=== PATIENT | male | born 1965 | race Caucasian/White ===

== ENCOUNTER 2019-04-21 11:38 | Emergency (ER) | payer BC ==
[2019-04-21] MEDS ORDERED: MORPHINE 4 MG/ML SYR ONE ×2 (12:03→14:13)
[2019-04-21] MEDS ORDERED: NA CHLORIDE 0.9% 1,000 ML ONE (12:03)
[2019-04-21] MEDS ORDERED: ONDANSETRON 4 MG/2 ML VIAL ONE (12:05)
[2019-04-21] MEDS ORDERED: KETOROLAC 30 MG/ML INJ ONE (12:34)
--- NOTE | 2019-04-21 12:39 | RAD REPORT ---
EXAM DESCRIPTION: CT - Stone Protocol - 04/21/2019 12:20 pm CLINICAL HISTORY: LLQ pain radiation to groin COMPARISON: No comparisons TECHNIQUE: Axial 5 mm thick images were obtained without oral or IV contrast. The [id number] span s the entirety of the system including uppermost abdomen and lung bases. All CT scans are performed using dose optimization technique as appropriate and may include automated exposure control or mA/KV adjustment according to patient size. FINDINGS: Mild hydronephrosis is present secondary to a 3 millimeter distal ureteral stone. This is approximately 3 cm from the UVJ. Mild edema seen along the fatty tissues adjacent to the left ureter. A 3 millimeter lower pole calcification present on the right. No right-sided hydronephrosis. No susp icious renal masses. Isodense masses and pyelonephritis are not excluded on a stone protocol CT scan. No urinary bladder suspicious finding. No significant adrenal finding. Imaged portions of the liver, spleen and pancreas show no suspicious findings on non-contrast imaging . Gallbladder has multiple small gallstones. No active gallbladder disease. No duct stone seen on CT imaging. No biliary tree dilatation. No suspicious bowel findings. No mass or bulky lymphadenopathy. Bilateral fat filled inguinal hernias are present. No free air, nba e fluid or inflammatory stranding. No significant bony abnormality. IMPRESSION: Mild left-sided hydronephrosis secondary to a 3 mm distal ureteral stone. This is approx imately 3 cm from the bladder. Isodense masses and pyelonephritis are not excluded on stone protocol technique.
[2019-04-21 12:58] LABS: Basophils % 0.6 % (0-1.3); Hematocrit 44.6 % (39.6-49.0); MPV 8.3 fL (7.6-11.3); RBC Red Blood Cell Count 4.99 M/uL (4.33-5.43)
[2019-04-21 13:08] LABS: Albumin 3.8 g/dL (3.4-5.0); Bilirubin Direct 0.2 mg/dL (0-0.2); Bilirubin Total 0.4 mg/dL (0.2-1.0); Protein, Total 7.4 g/dL (6.4-8.2)
[2019-04-21 13:39] LABS: Urine Bacteria <20 /HPF (NONE SEEN); Urine Culture Reflex Order NOT NEEDED; Urine Mucus HEAVY /HPF (NONE SEEN); Urine RBC >50 /HPF (NONE SEEN)
--- NOTE | 2019-04-21 14:43 | ER ---
Nurse's Notes [facility] Name: Dimas Dupree Age: 53 yrs Sex: Male : 1965 Arrival Date: 04/21/2019 Time: 11:41 Bed 13 Private MD: Diagnosis: Calculus of ureter Presentation: 04/21 11:42 Presenting complaint: EMS states: LLQ pain that radiates to groin, began at approx 1000 ph this morning, also c/o N/V. Transition of care: patient was not received from another setting of care. Onset of symptoms was April 21, 2019. Risk Assessment: Do you want to hurt yourself or someone else? Patient reports no desire to harm self or others. Initial Sepsis Screen: Does the patient meet any 2 criteria? No. Patient's initial sepsis screen is negative. Does the patient have a suspected source of infection? Yes: Dysuria/Frequency/Urgency/UTI. Care prior to arrival: Medication(s) given: Phenergan, 12.5 mg, IV initiated. 20 GA, in the left antecubital area. 11:42 Method Of Arrival: EMS: [facility] ph 11:42 Acuity: NANCIE 3 ph Triage Assessment: 19:26 General: Appears. ph Historical: - Allergies: 11:48 No Known Allergies; ph - PMHx: 11:48 Hypertension; ph - PSHx: 11:48 None; ph - Immunization history:: Adult Immunizations unknown. - Coronavirus screen:: The patient has NOT traveled to [place] in the past 14 days. The patient has NOT had contact with known/suspected case of Coronavirus?. - Social history:: Smoking status: Patient denies any tobacco usage or history of. - Ebola Screening: : No symptoms or risks identified at this time. Screenin:00 Abuse screen: Denies threats or abuse. Denies injuries from another. Nutritional ph screening: No deficits noted. Tuberculosis screening: No symptoms or risk factors identified. Fall Risk None identified. Assessment: 12:30 General: Appears in no apparent distress. uncomfortable, well groomed, Behavior is ph calm, cooperative, appropriate for age, Denies fever. Pain: Complains of pain in anterior aspect of right lateral abdomen and left lower quadrant Pain radiates to pelvis. Neuro: Level of Consciousness is awake, alert, obeys commands, Oriented to person, place, time, situation. Cardiovascular: Capillary refill < 3 seconds in bilateral fingers Patient's skin is warm and dry. Respiratory: Airway is patent Respiratory effort is even, unlabored, Respiratory pattern is regular, symmetrical. GI: Bowel sounds present X 4 quads. Abd is soft X 4 quads Reports lower abdominal pain, nausea, vomiting. : Reports pain in left flank(s), lower quadrant(s) scrotum. Derm: Skin is intact, is healthy with good turgor, Skin is pink, warm \T\ dry. Musculoskeletal: Circulation, motion, and sensation intact. Range of motion: intact in all extremities. Vital Signs: 11:45 BP 147 / 104; Pulse 75; Resp 22; Temp 97.8; Pulse Ox 100% on R/A; Weight 113.4 kg; ph Height 6 ft. 2 in. (187.96 cm); Pain 8/10; 13:00 BP 137 / 94; Pulse 76; Resp 18; Temp 98.0; Pulse Ox 99% on R/A; ph 14:00 BP 141 / 87; Pulse 78; Resp 16; Pulse Ox 98% on R/A; ph 15:00 BP 138 / 87; Pulse 75; Resp 16; Temp 97.9; Pulse Ox 99% on R/A; Pain 3/10; ph 11:45 Body Mass Index 32.10 (113.40 kg, 187.96 cm) ph ED Course: 11:41 Patient arrived in ED. ph 11:45 Triage completed. ph 11:48 Arm band placed on Patient placed in an exam room, on a stretcher, on pulse oximetry. ph 11:51 Rosalio Blue NP is PHCP. pm1 11:51 Dallas Spear MD is Attending Physician. pm1 12:18 Alice Wilkinson RN is Primary Nurse. ph 12:20 CT completed. Patient tolerated procedure well. Patient moved back from CT. bq 12:30 Patient has correct armband on for positive identification. Bed in low position. Call ph light in reach. Side rails up X 1. Pulse ox on. NIBP on. Door closed. Noise minimized. 12:30 No provider procedures requiring assistance completed. Maintain EMS IV. Dressing ph intact. Good blood return noted. Site clean \T\ dry. Gauge \T\ site: 20 LAC. 15:15 IV discontinued, intact, bleeding controlled, No redness/swelling at site. Pressure ph dressing applied. Administered Medications: 12:20 Drug: morphine 4 mg Route: IVP; Site: right forearm; ph 13:00 Follow up: Response: No adverse reaction; Pain is decreased; RASS: Alert and Calm (0) ph 12:40 Drug: TORadol 30 mg Route: IVP; Site: left antecubital; ph 13:30 Follow up: Response: No adverse reaction; Pain is decreased ph 12:42 Drug: NS 0.9% 1000 ml Route: IV; Rate: 1000 ml; Site: left antecubital; ph 14:00 Follow up: Response: No adverse reaction; IV Status: Completed infusion; IV Intake: ph 1000ml 15:17 Drug: Flomax 0.4 mg Route: PO; ph 15:20 Follow up: Response: No adverse reaction; Medication administered at discharge. ph Intake: 14:00 IV: 1000ml; Total: 1000ml. ph Outcome: 14:42 Discharge ordered by . pm1 15:17 Patient left the ED. ph 15:17 Discharged to home ambulatory, with significant other. ph 15:17 Condition: improved 15:17 Discharge instructions given to patient, Instructed on discharge instructions, follow up and referral plans. medication usage, Demonstrated understanding of instructions, follow-up care, medications, Prescriptions given X 3. Signatures: Ely Serna Patricia, RN RN Rosalio Sarmiento, RICKYE CAR SALESPERSON pm1
--- NOTE | 2019-04-21 14:44 | EDPHYS ---
Physician Documentation [facility] Name: Dimas Dupree Age: 53 yrs Sex: Male : 1965 Arrival Date: 04/21/2019 Time: 11:41 Bed 13 Private MD: ED Physician Dallas Spear HPI: 04/21 11:59 This 53 yrs old Male presents to ER via EMS with complaints of Abdominal Pain.pm1 11:59 The patient presents with abdominal pain in the left lower quadrant. Onset: The pm1 symptoms/episode began/occurred this morning. The symptoms radiate to groin. Associated signs and symptoms: Pertinent negatives: nausea, vomiting, and diarrhea, chest pain, fever, shortness of breath. The symptoms are described as waxing/waning. Modifying factors: The symptoms are alleviated by nothing, the symptoms are aggravated by nothing. Severity of pain: in the emergency department the pain is actually worse. The patient has not experienced similar symptoms in the past. It is unknown whether or not the patient has recently seen a physician. Historical: - Allergies: 11:48 No Known Allergies; ph - PMHx: 11:48 Hypertension; ph - PSHx: 11:48 None; ph - Immunization history:: Adult Immunizations unknown. - Coronavirus screen:: The patient has NOT traveled to [place] in the past 14 days. The patient has NOT had contact with known/suspected case of Coronavirus?. - Social history:: Smoking status: Patient denies any tobacco usage or history of. - Ebola Screening: : No symptoms or risks identified at this time. ROS: 11:59 Constitutional: Negative for fever, chills, and weight loss, Cardiovascular: Negative pm1 for chest pain, palpitations, and edema, Respiratory: Negative for shortness of breath, cough, wheezing, and pleuritic chest pain. 11:59 Back: Negative for injury and pain, : Negative for injury, bleeding, discharge, and swelling, MS/Extremity: Negative for injury and deformity, Skin: Negative for injury, rash, and discoloration, Neuro: Negative for headache, weakness, numbness, tingling, and seizure. 11:59 Abdomen/GI: Positive for abdominal pain, of the left lower quadrant, Negative for nausea, vomiting, and diarrhea. Exam: 11:59 Constitutional: This is a well developed, well nourished patient who is awake, alert, pm1 and in no acute distress. Head/Face: Normocephalic, atraumatic. Chest/axilla: Normal chest wall appearance and motion. Nontender with no deformity. No lesions are appreciated. Cardiovascular: Regular rate and rhythm with a normal S1 and S2. No gallops, murmurs, or rubs. Normal PMI, no JVD. No pulse deficits. Respiratory: Lungs have equal breath sounds bilaterally, clear to auscultation and percussion. No rales, rhonchi or wheezes noted. No increased work of breathing, no retractions or nasal flaring. Abdomen/GI: Soft, non-tender, with normal bowel sounds. No distension or tympany. No guarding or rebound. No evidence of tenderness throughout. Back: No spinal tenderness. No costovertebral tenderness. Full range of motion. Skin: Warm, dry with normal turgor. Normal color with no rashes, no lesions, and no evidence of cellulitis. MS/ Extremity: Pulses equal, no cyanosis. Neurovascular intact. Full, normal range of motion. 11:59 Neuro: Orientation: is normal, Motor: is normal, moves all fours. Vital Signs: 11:45 BP 147 / 104; Pulse 75; Resp 22; Temp 97.8; Pulse Ox 100% on R/A; Weight 113.4 kg; ph Height 6 ft. 2 in. (187.96 cm); Pain 8/10; 13:00 BP 137 / 94; Pulse 76; Resp 18; Temp 98.0; Pulse Ox 99% on R/A; ph 14:00 BP 141 / 87; Pulse 78; Resp 16; Pulse Ox 98% on R/A; ph 15:00 BP 138 / 87; Pulse 75; Resp 16; Temp 97.9; Pulse Ox 99% on R/A; Pain 3/10; ph 11:45 Body Mass Index 32.10 (113.40 kg, 187.96 cm) ph MDM: 11:51 Patient medically screened. pm1 14:41 Data reviewed: vital signs. Data interpreted: Pulse oximetry: on room air is 100 %. pm1 Interpretation: normal. Counseling: I had a detailed discussion with the patient and/or guardian regarding: the historical points, exam findings, and any diagnostic results supporting the discharge/admit diagnosis, lab results, radiology results, the need for outpatient follow up, for definitive care, a urologist, to return to the emergency department if symptoms worsen or persist or if there are any questions or concerns that arise at home. 04/21 11:56 Order name: Basic Metabolic Panel pm04/21 11:56 Order name: CBC with Diff pm04/21 11:56 Order name: Creatinine for Radiology pm04/21 11:56 Order name: Hepatic Function pm04/21 11:56 Order name: Lipase pm04/21 11:56 Order name: Urine Microscopic Only pm04/21 11:56 Order name: CT Stone Protocol pm04/21 13:01 Order name: Creatinine (Radiology Only); Complete Time: 13:14 EDMS 04/21 13:05 Order name: Urine Dipstick--Ancillary (enter results) ms 04/21 13:07 Order name: CBC with Automated Diff; Complete Time: 13:14 EDMS 04/21 13:08 Order name: Basic Metabolic Panel; Complete Time: 13:14 EDMS 04/21 13:08 Order name: Liver (Hepatic) Function; Complete Time: 13:14 EDMS 04/21 13:08 Order name: Lipase; Complete Time: 13:14 EDMS 04/21 13:41 Order name: Urine Microscopic Only; Complete Time: 14:43 EDMS 04/21 11:56 Order name: IV Saline Lock; Complete Time: 12:43 pm04/21 11:56 Order name: Labs collected and sent; Complete Time: 12:43 pm04/21 11:56 Order name: Urine Dipstick-Ancillary (obtain specimen); Complete Time: 12:43 pm04/21 12:42 Order name: CT; Complete Time: 13:14 EDMS Administered Medications: 12:20 Drug: morphine 4 mg Route: IVP; Site: right forearm; ph 13:00 Follow up: Response: No adverse reaction; Pain is decreased; RASS: Alert and Calm (0) ph 12:40 Drug: TORadol 30 mg Route: IVP; Site: left antecubital; ph 13:30 Follow up: Response: No adverse reaction; Pain is decreased ph 12:42 Drug: NS 0.9% 1000 ml Route: IV; Rate: 1000 ml; Site: left antecubital; ph 14:00 Follow up: Response: No adverse reaction; IV Status: Completed infusion; IV Intake: ph 1000ml 15:17 Drug: Flomax 0.4 mg Route: PO; ph 15:20 Follow up: Response: No adverse reaction; Medication administered at discharge. ph Disposition: 15:53 Co-signature as Attending Physician, Dallas Spear MD. rn Disposition: 04/21/19 14:42 Discharged to Home. Impression: Calculus of ureter. - Condition is Stable. - Discharge Instructions: Kidney Stones, Dietary Guidelines to Help Prevent Kidney Stones. - Prescriptions for Tylenol- Codeine #3 300-30 mg Oral Tablet - take 2 tablets by ORAL route every 6 hours As needed; 20 tablet. Zofran 4 mg Oral Tablet - take 1 tablet by ORAL route every 8 hours As needed; 20 tablet. Flomax 0.4 mg Oral Capsule, Sust. Release 24 hr - take 1 capsule by ORAL route once daily 1/2 hour following the same meal each day; 10 capsule. - Medication Reconciliation Form, Thank You Letter, Antibiotic Education, Prescription Opioid Use form. - Follow up: Emergency Department; When: As needed; Reason: Worsening of condition. - Problem is new. - Symptoms have improved. Signatures: Dispatcher [employer] EDDallas Reid MD MD rn Hall, Patricia, RN RN ph Marinas, Patrick, NP [employer] pm1 Corrections: (The following items were deleted from the chart) 15:17 14:42 04/21/2019 14:42 Discharged to Home. Impression: Calculus of ureter. Condition is ph Stable. Forms are Medication Reconciliation Form, Thank You Letter, Antibiotic Education, Prescription Opioid Use. Follow up: Emergency Department; When: As needed; Reason: Worsening of condition. Problem is new. Symptoms have improved. pm1
[2019-04-21] MEDS ORDERED: TAMSULOSIN 0.4 MG SR CAP ONE (14:59)
[2019-04-21 16:06] VITALS: BP 147/104; TEMP 97.8; O2SAT 100
[2019-04-21 20:36] LABS: Urine Blood 3+ (NEG); Urine Glucose NEGATIVE (NEG); Urine Protein 1+ (NEG); Urine Specific Gravity >1.030 (1.005-1.030); Urine pH 5.5 (5.0-7.0)
== END 2019-04-21 15:17 | disposition home or self-care (01) ==
LOC: ER 11:38
DX: N20.1 Calculus of ureter (principal); I10 Essential (primary) hypertension
CPT/HCPCS: 96361; 85025; 80048; 36415; 80076; 83690; 76377; 74176; 96375; 96374; 99284; J7030; J2405; 81003; 81015

== ENCOUNTER 2023-04-18 13:50 | Observation (INO) | payer BC ==
[2023-04-18] MEDS ORDERED: ONDANSETRON 4 MG/2 ML VIAL ONE (14:04)
[2023-04-18] MEDS ORDERED: MORPHINE 4 MG/ML SYR ONE ×2 (14:05→15:30)
[2023-04-18] MEDS ORDERED: NA CHLORIDE 0.9% 1,000 ML ONE ×2 (14:05→17:48)
[2023-04-18 14:22] LABS: Absolute Lymphocytes (CBC) 1.6 K/uL (0.7-4.9); Hematocrit 36.7 % (39.6-49.0); Lymphocytes % 13.8 % (15.3-44.8); MPV 7.5 fL (7.6-11.3); Platelets 376 thou/uL (152-406); RBC Red Blood Cell Count 4.37 M/uL (4.33-5.43)
[2023-04-18 14:35] LABS: Albumin 3.3 g/dL (3.4-5.0); Bilirubin Total 0.4 mg/dL (0.2-1.0); Potassium 3.8 mEq/L (3.5-5.1); Protein, Total 7.3 g/dL (6.4-8.2)
--- NOTE | 2023-04-18 15:05 | RAD REPORT ---
EXAM DESCRIPTION: US - Abdomen Exam Limited - 04/18/2023 2:44 pm CLINICAL HISTORY: ABD PAIN COMPARISON: Stone Protocol dated 04/21/2019; Abdomen Pelvis W Contrast dated 04/18/2023 TECHNIQUE: Sonographic grayscale and color flow images of the right upper abdominal quadrant were o btained. FINDINGS: The gallbladder demonstrates multiple layering small echogenic calculi near the neck. No p ericholecystic fluid or gallbladder wall thickening, however a positive sonographic Guerrero sign was d emonstrated. There is a small fold near the gallbladder fundus. The common bile duct is normal measur ing 3 mm. The liver demonstrates no findings of intrahepatic biliary dilatation. IMPRESSION: Cholelithiasis, with positive sonographic Guerrero sign, concerning for acute cholecystiti s.
[2023-04-18 15:53] LABS: Urine Bacteria None Seen /HPF (<20); Urine Bilirubin NEGATIVE (Negative); Urine Blood 3+ (OVER) (Negative); Urine Clarity Turbid (Clear); Urine Color Light-Yellow (Yellow); Urine Crystals Unidentified Few /HPF (None Seen); Urine Glucose NEGATIVE (Negative); Urine Mucus 1+ /HPF (None Seen); Urine Protein TRACE (Negative); Urine RBC >50 /HPF (None Seen); Urine Urobilinogen Normal (Normal); Urine pH 6.5 (5.0-7.0)
--- NOTE | 2023-04-18 15:54 | RAD REPORT ---
EXAM DESCRIPTION: CT - Abdomen Pelvis W Contrast - 04/18/2023 2:47 pm CLINICAL HISTORY: ABD PAIN COMPARISON: No comparisons TECHNIQUE: Thin cut axial CT imaging of the abdomen and pelvis was performed following intravenous a dministration of 100 mL Isovue 300. Multiplanar reformats were generated and reviewed. All CT scans are performed using dose optimization technique as appropriate and may include automated exposure control or mA/KV adjustment according to patient size. FINDINGS: No suspicious findings in the lung bases. The liver, spleen, adrenal glands, and pancreas show no suspicious findings. Gallbladder shows layeri ng mildly hyperdense material near the neck, may suggest small stones. Right moderate hydroureteronephrosis. 6 mm calculus at the mid to distal right ureter. No suspicious renal masses. No dilated bowel loops or bowel wall thickening. No free air, free fluid or inflammatory stranding. S mall left inguinal fat containing hernia. No suspicious mass or bulky lymphadenopathy. The urinary bl adder is without significant finding. No suspicious bony findings. IMPRESSION: Moderate right hydroureteronephrosis. Obstructing 6 mm mid to distal right ureteric calc ulus. Cholelithiasis. The findings were communicated to Eliseo Page on 04/18/2023 at 15:50 hours.
[2023-04-18 16:00] LABS: Specific Gravity > 1.030 (1.005-1.030)
[2023-04-18] MEDS ORDERED: PIPERACIL/TAZO 3.375 GM VIAL IV ONE (16:29)
[2023-04-18] MEDS ORDERED: HYDROMORPHONE HCL 1 MG/ML INJ ONE (16:29)
[2023-04-18] MEDS ORDERED: NA CHLORIDE 0.9% 100 ML ONE (16:29)
--- NOTE | 2023-04-18 16:56 | EDPHYS ---
Physician Documentation [facility] Name: Dimas Dupree Age: 57 yrs Sex: Male : 1965 Arrival Date: 04/18/2023 Time: 13:50 Bed 20 Private MD: ED Physician Dimas Romero HPI: 04/18 17:54 This 57 yrs old Male presents to ER via EMS with complaints of Abdominal pain. rt 17:54 Patient presents to the ED with a right upper quadrant pain. He has known rt cholelithiasis. Symptoms have worsened this morning. Has nausea without vomiting. Denies other acute complaints, symptoms are moderate in severity and radiates downward. No other aggravating or elevating factors.. Historical: - Allergies: 14:01 No Known Allergies; mb9 - Home Meds: 14:01 losartan 25 mg oral tablet [Active]; mb9 - PMHx: 14:01 Hypertension; mb9 - PSHx: 14:01 None; mb9 - Immunization history:: Adult Immunizations up to date. - Social history:: Smoking status: Patient denies any tobacco usage or history of. - Family history:: not pertinent. ROS: 17:54 Constitutional: Negative for fever, chills, and weight loss, Cardiovascular: Negative rt for chest pain, palpitations, and edema, Respiratory: Negative for shortness of breath, cough, wheezing, and pleuritic chest pain, MS/Extremity: Negative for injury and deformity, Skin: Negative for injury, rash, and discoloration, Neuro: Negative for headache, weakness, numbness, tingling, and seizure, Psych: Negative for depression, anxiety, suicide ideation, homicidal ideation, and hallucinations, 17:54 Abdomen/GI: Positive for abdominal pain, nausea, Exam: 17:54 Constitutional: This is a well developed, well nourished patient who is awake, alert, rt and in no acute distress. Head/Face: Normocephalic, atraumatic. Chest/axilla: Normal chest wall appearance and motion. Nontender with no deformity. No lesions are appreciated. Cardiovascular: Regular rate and rhythm with a normal S1 and S2. No gallops, murmurs, or rubs. Normal PMI, no JVD. No pulse deficits. Respiratory: Lungs have equal breath sounds bilaterally, clear to auscultation and percussion. No rales, rhonchi or wheezes noted. No increased work of breathing, no retractions or nasal flaring. Skin: Warm, dry with normal turgor. Normal color with no rashes, no lesions, and no evidence of cellulitis. MS/ Extremity: Pulses equal, no cyanosis. Neurovascular intact. Full, normal range of motion. Neuro: Awake and alert, GCS 15, oriented to person, place, time, and situation. Cranial nerves II-XII grossly intact. Motor strength 5/5 in all extremities. Sensory grossly intact. Cerebellar exam normal. Normal gait. Psych: Awake, alert, with orientation to person, place and time. Behavior, mood, and affect are within normal limits. 17:54 Abdomen/GI: Tenderness to the right upper quadrant with mild guarding, no rebound, distention, Vital Signs: 14:00 BP 171 / 99; Pulse 81; Resp 18; Temp 98.8; Pulse Ox 100% ; Weight 117.93 kg; Height 6 mb9 ft. 2 in. ; Pain 6/10; 15:12 BP 182 / 105; Pulse 88; Resp 18; Pulse Ox 100% on R/A; mb9 16:00 BP 170 / 92; Pulse 84; Resp 18; Pulse Ox 95% on R/A; mb9 14:00 Body Mass Index 33.38 (117.93 kg, 187.96 cm) mb9 14:00 Pain Scale: Adult mb9 MDM: 14:00 Patient medically screened. rt 17:54 Differential Diagnosis Cholelithiasis, bowel obstruction, ureteral stone. Data rt reviewed: vital signs, nurses notes, lab test result(s), EKG, radiologic studies. Consideration of Admission/Observation Patient was admitted/placed on observation. Management of patient was discussed with the following: Electrical Installation Inspector: Discussed with Dr. Awan general surgery, will operate tomorrow. I considered the following discharge prescriptions or medication management in the emergency department Medications were administered in the Emergency Department. See MAR. Independent interpretation of the following test(s) in the Emergency Department CT Scan: My interpretation is No bowel obstruction syndrome interpretation of CT scan images. Care significantly affected by the following chronic conditions: Hypertension. Counseling: I had a detailed discussion with the patient and/or guardian regarding the historical points, exam findings, and any diagnostic results supporting the discharge/admit diagnosis, lab results, radiology results, the need for further work-up and treatment in the hospital. Response to treatment: the patient's symptoms have mildly improved after treatment. 04/18 14:02 Order name: CBC with Diff; Complete Time: 15:57 rt 04/18 14:02 Order name: CMP; Complete Time: 15:57 rt 04/18 14:02 Order name: Lipase; Complete Time: 15:57 rt 04/18 14:02 Order name: Urinalysis w/ reflexes; Complete Time: 16:12 rt 04/18 17:18 Order name: Basic Metabolic Panel EDMO 04/18 17:18 Order name: Basic Metabolic Panel EDMO 04/18 17:18 Order name: CBC with Automated Diff EDMO 04/18 17:18 Order name: CBC with Automated Diff EDMO 04/18 17:18 Order name: Magnesium EDMO 04/18 17:18 Order name: Magnesium EDMO 04/18 17:18 Order name: Protime (+INR) EDMO 04/18 17:18 Order name: Protime (+INR) EDMO 04/18 14:02 Order name: CT Abd/Pelvis - IV Contrast Only; Complete Time: 15:57 rt 04/18 14:02 Order name: US Abdomen Limited; Complete Time: 15:57 rt 04/18 17:15 Order name: CONS Physician Consult EDMO 04/18 14:02 Order name: IV Saline Lock; Complete Time: 14:03 rt 04/18 14:02 Order name: Labs collected and sent; Complete Time: 14:13 rt Administered Medications: 14:07 Drug: NS 0.9% IV 1000 ml IV at 1 bolus Per protocol; 1000 mL bolus Route: IV; Rate: 1 mb9 bolus; Site: left antecubital; 18:30 Follow up: Response: No adverse reaction; IV Status: Completed infusion mb9 14:07 Drug: Ondansetron IVP 4 mg IVP once; over 2 minutes Route: IVP; Site: left antecubital; mb9 14:37 Follow up: Response: No adverse reaction mb9 14:10 Drug: morphine IVP or IV 4 mg IVP once over 4 mins Route: IVP; Infused Over: 4 mins; mb9 Site: left antecubital; 14:38 Follow up: Response: No adverse reaction mb9 15:33 Drug: morphine IVP or IV 4 mg IVP once over 4 mins Route: IVP; Infused Over: 4 mins; mb9 Site: left antecubital; 18:30 Follow up: Response: No adverse reaction mb9 16:39 Drug: HYDROmorphone IVP 1 mg IVP once Route: IVP; Site: left antecubital; mb9 18:30 Follow up: Response: No adverse reaction mb9 16:39 Drug: Piperacillin-Tazobactam IVPB 3.375 grams IVPB once over 60 mins; (mix in NS 100 mb9 mL) Route: IVPB; Infused Over: 60 mins; Site: left antecubital; 18:30 Follow up: Response: No adverse reaction; IV Status: Completed infusion mb9 Disposition Summary: 04/18/23 16:56 Hospitalization Ordered Notes: Hospitalization Status: Observation rt Provider: Thania Segovia rt Condition: Stable rt Problem: new rt Symptoms: have improved rt Bed/Room Type: Standard rt Location: Telemetry/MedSurg (observation)(04/18/23 20:10) as6 Room Assignment: 231(04/18/23 20:10) as6 Diagnosis - Acute cholecystitis rt - Ureteral calculus rt Forms: - Medication Reconciliation Form rt - SBAR form rt - Leadership Thank You Letter rt Signatures: Dispatcher [employer] EDClarita Negrete Ashby, RN RN as6 Ro Cook RN RN mb9 Dimas Romero MD MD rt Corrections: (The following items were deleted from the chart) 17:21 16:56 Telemetry/MedSurg (observation) rt bd 17:21 16:56 rt bd 20:10 17:21 [facility] ER HOLD bd as6 20:10 17:21 ERHOLD- bd as6
--- NOTE | 2023-04-18 16:56 | ER ---
Nurse's Notes [facility] Name: Dimas Dupree Age: 57 yrs Sex: Male : 1965 Arrival Date: 04/18/2023 Time: 13:50 Bed 20 Private MD: Diagnosis: Acute cholecystitis;Ureteral calculus Presentation: 04/18 14:00 Chief complaint: EMS states: "toned out for RUQ abdominal pain and N/V that got worse mb9 today. Pt states pain feels like when he had gallstones. 20 g left FA.". Coronavirus screen: Vaccine status: Patient reports receiving the 2nd dose of the covid vaccine. Ebola Screen: No symptoms or risks identified at this time. Initial Sepsis Screen: Does the patient meet any 2 criteria? No. Patient's initial sepsis screen is negative. Does the patient have a suspected source of infection? No. Patient's initial sepsis screen is negative. Risk Assessment: Do you want to hurt yourself or someone else? Patient reports no desire to harm self or others. Onset of symptoms was April 18, 2023. 14:00 Method Of Arrival: EMS: [facility] mb9 14:00 Acuity: NANCIE 3 mb9 Triage Assessment: 14:02 General: Appears uncomfortable, Behavior is cooperative. Pain: Complains of pain in mb9 abdomen Pain does not radiate. Pain currently is 6 out of 10 on a pain scale. Quality of pain is described as throbbing, Pain began suddenly, Is continuous. EENT: No signs and/or symptoms were reported regarding the EENT system. Neuro: Bhatia Agitation-Sedation Scale (RASS): 0 - Alert and Calm Level of Consciousness is awake, alert, obeys commands, Oriented to person, place, time, situation, Appropriate for age. Cardiovascular: Patient's skin is warm and dry. Respiratory: Airway is patent Respiratory effort is even, unlabored, Respiratory pattern is regular, symmetrical. GI: Abdomen is round distended, Bowel sounds present X 4 quads. Abd is soft Abdomen is tender to palpation in right upper quadrant and right lower quadrant Reports lower abdominal pain, upper abdominal pain, nausea. : No signs and/or symptoms were reported regarding the genitourinary system. Derm: Skin is pink, warm \\T\\ dry. Musculoskeletal: Range of motion: intact in all extremities. Historical: - Allergies: 14:01 No Known Allergies; mb9 - Home Meds: 14: losartan 25 mg oral tablet [Active]; mb9 - PMHx: 14: Hypertension; mb9 - PSHx: 14: None; mb9 - Immunization history:: Adult Immunizations up to date. - Social history:: Smoking status: Patient denies any tobacco usage or history of. - Family history:: not pertinent. Screenin:03 [facility] ED Fall Risk Assessment (Adult) History of falling in the last 3 months, mb9 including since admission No falls in past 3 months (0 pts) Confusion or Disorientation No (0 pts) Intoxicated or Sedated No (0 pts) Impaired Gait No (0 pts) Mobility Assist Device Used No (0 pt) Altered Elimination No (0 pt) Score/Fall Risk Level 0 - 2 = Low Risk Oriented to surroundings, Maintained a safe environment, Educated pt \\T\\ family on fall prevention, incl call for assistance when getting out of bed. Abuse screen: Denies threats or abuse. Nutritional screening: No deficits noted. Tuberculosis screening: No symptoms or risk factors identified. Assessment: 14:03 Reassessment: see triage assessment. mb9 15:35 Reassessment: Patient and/or family updated on plan of care and expected duration. Pain mb9 level reassessed. Patient is alert, oriented x 3, equal unlabored respirations, skin warm/dry/pink. Patient states symptoms have not improved. 16:42 Reassessment: No changes from previously documented assessment. Patient and/or family mb9 updated on plan of care and expected duration. Pain level reassessed. Patient is alert, oriented x 3, equal unlabored respirations, skin warm/dry/pink. Vital Signs: 14:00 BP 171 / 99; Pulse 81; Resp 18; Temp 98.8; Pulse Ox 100% ; Weight 117.93 kg; Height 6 mb9 ft. 2 in. ; Pain 6/10; 15:12 BP 182 / 105; Pulse 88; Resp 18; Pulse Ox 100% on R/A; mb9 16:00 BP 170 / 92; Pulse 84; Resp 18; Pulse Ox 95% on R/A; mb9 14:00 Body Mass Index 33.38 (117.93 kg, 187.96 cm) mb9 14:00 Pain Scale: Adult mb9 ED Course: 14:00 Patient arrived in ED. mb9 14:00 Dimas Romero MD is Attending Physician. rt 14:01 Triage completed. mb9 14:02 Arm band placed on. mb9 14:03 Placed in gown. Bed in low position. Call light in reach. Side rails up X 1. Client mb9 placed on continuous cardiac and pulse oximetry monitoring. NIBP monitoring applied. 14:13 Ro Cook RN is Primary Nurse. mb9 14:13 CBC with Diff Sent. mb9 14:13 CMP Sent. mb9 14:13 Lipase Sent. mb9 14:39 No provider procedures requiring assistance completed. Maintain EMS IV. Dressing mb9 intact. Good blood return noted. Site clean \\T\\ dry. Gauge \\T\\ site: 20g left AC. 14:46 US Abdomen Limited In Process Unspecified. EDMS 14:48 CT Abd/Pelvis - IV Contrast Only In Process Unspecified. EDMS 16:55 Thania Segovia MD is Hospitalizing Provider. rt 19:07 Report given to LUIS DANIEL GAGE. mb9 21:45 Patient admitted, IV remains in place. [email or web address] Administered Medications: 14:07 Drug: NS 0.9% IV 1000 ml IV at 1 bolus Per protocol; 1000 mL bolus Route: IV; Rate: 1 mb9 bolus; Site: left antecubital; 18:30 Follow up: Response: No adverse reaction; IV Status: Completed infusion mb9 14:07 Drug: Ondansetron IVP 4 mg IVP once; over 2 minutes Route: IVP; Site: left antecubital; mb9 14:37 Follow up: Response: No adverse reaction mb9 14:10 Drug: morphine IVP or IV 4 mg IVP once over 4 mins Route: IVP; Infused Over: 4 mins; mb9 Site: left antecubital; 14:38 Follow up: Response: No adverse reaction mb9 15:33 Drug: morphine IVP or IV 4 mg IVP once over 4 mins Route: IVP; Infused Over: 4 mins; mb9 Site: left antecubital; 18:30 Follow up: Response: No adverse reaction mb9 16:39 Drug: HYDROmorphone IVP 1 mg IVP once Route: IVP; Site: left antecubital; mb9 18:30 Follow up: Response: No adverse reaction mb9 16:39 Drug: Piperacillin-Tazobactam IVPB 3.375 grams IVPB once over 60 mins; (mix in NS 100 mb9 mL) Route: IVPB; Infused Over: 60 mins; Site: left antecubital; 18:30 Follow up: Response: No adverse reaction; IV Status: Completed infusion mb9 Medication: 14:39 VIS not applicable for this client. mb9 Outcome: 16:56 Decision to Hospitalize by Provider. rt 21:45 Admitted to Med/surg accompanied by tech, room 231, Report called to ERNESTINA [email or web address] 21:45 Condition: improved 22:18 Patient left the ED. [email or web address] Signatures: Dispatcher [employer] EDRohit Cantu RN RN Ro Conklin RN RN mb9 Dimas Romero MD MD rt Corrections: (The following items were deleted from the chart) 16:02 16:00 Pulse 84bpm; Resp 18bpm; Pulse Ox 95% RA; mb9 mb9
[2023-04-18] MEDS ORDERED: ONDANSETRON 4 MG/2 ML VIAL IV PRN (17:13)
--- NOTE | 2023-04-18 17:25 | P.HP ---
Certification for Inpatient Patient admitted to: Observation Practitioner: I am a practitioner with admitting privileges, knowledge of patient current condition, hospital course, and medical plan of care. Services: Services provided to patient in accordance with Admission requirements found in Title 42 Section 412.3 of the Code of Federal Regulations Patient History Date of Service: 04/18/23 Reason for admission: Cholecystitis History of Present Illness: 57-year-old male past medical history of hypertension, hyperlipidemia, presents to the emergency room with right upper quadrant. He reports nausea, abdominal pain 6 out of 10, relieved with as needed analgesics, reports associated poor appetite. He reports abdominal pain started today. No reported fever, no reported chest pain, shortness of breath, vomiting diarrhea. Plan to admit for acute cholecystitis, right ureteral kidney stone with right hydronephrosis, surgery and urology to consult. Laboratory evaluation leukocytosis of 11.60, acute kidney injury creatinine, 1.36, UA 3+ blood, CT of the abdomen pelvis FINDINGS: Mild hydronephrosis is present secondary to a 3 millimeter distal ureteral stone. This is approximately 3 cm from the UVJ. Mild edema seen along the fatty tissues adjacent to the left ureter. A 3 millimeter lower pole calcification present on the right. No right-sided hydronephrosis. No suspicious renal masses. Isodense masses and pyelonephritis are not excluded on a stone protocol CT scan. No urinary bladder suspicious finding. No significant adrenal finding,, abdominal ultrasound IMPRESSION: Cholelithiasis, with positive sonographic Guerrero sign, concerning for acute cholecystitis. Allergies No Known Allergies Allergy (Unverified 03/16/17 11:50) - Past Medical/Surgical History -: Hypertension -: Insomnia Past Surgical History: Patient denies surgical history - Social History Smoking Status: Never smoker Alcohol use: No CD- Drugs: No Caffeine use: Yes Place of Residence: Home Review of Systems per HPI Physical Examination - Physical Exam General: Alert, In no apparent distress, Oriented x3, Obese HEENT: Atraumatic, Normocephalic Neck: Supple, 2+ carotid pulse no bruit Respiratory: Clear to auscultation bilaterally, Normal air movement Cardiovascular: No edema, Normal pulses, Regular rate/rhythm Capillary refill: <2 Seconds Gastrointestinal: Normal bowel sounds, Tenderness (RUQ) Musculoskeletal: No clubbing, No swelling Integumentary: No rashes, No breakdown Neurological: Normal speech, Normal strength at 5/5 x4 extr - Studies Laboratory Data (last 24 hrs) 04/18/23 04/18/23 14:10 14:10 WBC 11.60 H Hgb 12.2 L Hct 36.7 L Plt Count 376 Sodium 138 Potassium 3.8 BUN 12 Creatinine 1.36 H Glucose 116 H Total Bilirubin 0.4 AST 15 ALT 28 Alkaline Phosphatase 70 Lipase 25 Assessment and Plan - Plan Assessment plan Acute cholecystitis Abdominal pain secondary to acute Surgery consult, n.p.o. after midnight IV Zosyn, IV fluids, as needed antiemetics, as needed analgesics CT of the abdomen pelvis IMPRESSION: Moderate right hydroureteronephrosis. Obstructing 6 mm mid to distal right ureteric calculus. Cholelithiasis. Abdominal ultrasound IMPRESSION: Cholelithiasis, with positive sonographic Guerrero sign, concerning for acute cholecystitis. Ureteral calculus obstructive Acute pyelonephritis Moderate right hydroureteronephrosis. Obstructing 6 mm mid to distal right ureteric calculus. Cholelithiasis. Follow-up urology consult IV fluids, Hematuria 3+ hematuria Follow-up with urology outpatient for kidney stones Hypertension controlled unknown baseline As needed antihypertensives BP 171 / 99; Pulse 81; Resp 18; Temp 98.8; Pulse Ox 100% Acute on chronic kidney injury unknown baseline IV fluids, trend kidney function Full code DVT SCDs Diet n.p.o. after midnight Discharge Plan: Home Plan to discharge in: 24 Hours - Advance Directives Does patient have a Living Will: No Does patient have a Durable POA for Healthcare: No - Code Status/Comfort Care Code Status: Full Code Critical Care: No Time Spent Managing Pts Care (In Minutes): 55
[2023-04-18] MEDS: PIPER TAZO 3.375 GM in NA CHLORIDE 0.9% 100 ML IV SCH (17:46)
[2023-04-18] MEDS: NA CHLORIDE 0.9% 1,000 ML IV SCH (18:00)
[2023-04-18 18:14] VITALS: BMI 33.3
[2023-04-18] MEDS ORDERED: HYDROMORPHONE HCL 0.5 MG/0.5 ML INJ ONE (19:09)
[2023-04-18] MEDS: HYDROMORPHONE HCL 0.5 MG/0.5 ML INJ IV PRN (19:25)
[2023-04-18] MEDS: METOPROLOL TARTRATE 5 MG/5 ML INJ IV PRN (21:35)
[2023-04-18] MEDS: ZOLPIDEM TARTRATE 5 MG TABLET PO PRN (22:30)
[2023-04-19 04:24] LABS: Absolute Lymphocytes (CBC) 1.5 K/uL (0.7-4.9); Hematocrit 33.9 % (39.6-49.0); Lymphocytes % 13.5 % (15.3-44.8); MCV 85.3 fL (80-100); MPV 7.6 fL (7.6-11.3); Platelets 300 thou/uL (152-406); RBC Red Blood Cell Count 3.97 M/uL (4.33-5.43)
[2023-04-19 04:34] LABS: Magnesium 2.2 mg/dL (1.6-2.4); Potassium 4.1 mEq/L (3.5-5.1)
[2023-04-19 04:39] LABS: Protime INR 1.15
--- NOTE | 2023-04-19 07:50 | P.PN ---
Subjective Date of Service: 04/19/23 Chief Complaint: Cholecystitis Pain control with as needed analgesics, n.p.o. for cholecystectomy, urology consulted for right renal stone Abdominal pain suspected from renal calculi, renal stent placed by Dr. Mcallister - Physical Exam General: Alert, In no apparent distress, Oriented x3, Obese HEENT: Atraumatic, Normocephalic Neck: Supple, 2+ carotid pulse no bruit Respiratory: Clear to auscultation bilaterally, Normal air movement Cardiovascular: No edema, Normal pulses, Regular rate/rhythm Capillary refill: <2 Seconds Gastrointestinal: Normal bowel sounds, Tenderness (RUQ) Musculoskeletal: No clubbing, No swelling Integumentary: No rashes, No breakdown Neurological: Normal speech, Normal strength at 5/5 x4 extr Review of Systems PER HPI Physical Examination - Vital Signs Temperature: 98.0 F Blood Pressure: 155/99 Pulse: 92 Respirations: 20 Pulse Ox (%): 94 - Studies Laboratory Data (last 24 hrs) 04/18/23 04/18/23 14:10 14:10 WBC 11.60 H Hgb 12.2 L Hct 36.7 L Plt Count 376 Sodium 138 Potassium 3.8 BUN 12 Creatinine 1.36 H Glucose 116 H Total Bilirubin 0.4 AST 15 ALT 28 Alkaline Phosphatase 70 Lipase 25 Assessment And Plan - Plan Assessment plan Acute cholelithiasis Abdominal pain secondary to acute-suspected from renal calculi Surgery consult, n.p.o. after midnight IV Zosyn, IV fluids, as needed antiemetics, as needed analgesics CT of the abdomen pelvis IMPRESSION: Moderate right hydroureteronephrosis. Obstructing 6 mm mid to distal right ureteric calculus. Cholelithiasis. Abdominal ultrasound IMPRESSION: Cholelithiasis, with positive sonographic Guerrero sign, concerning for acute cholecystitis. Ureteral calculus obstructive Acute pyelonephritis Moderate right hydroureteronephrosis. Obstructing 6 mm mid to distal right ureteric calculus. Cholelithiasis. Follow-up urology consult IV fluids, as needed analgesic 04/[address] Mcallister history: hypertension and BPH on doxazosin, recurrent stone former, with mid distal right 6 mm ureteral obstructing calculus with ROSE. Sequential urethral dilation over a wire Right retrograde pyelography Right ureteral stent placement Complex 20 [place] urethral Mead catheter placement Hematuria 3+ hematuria Follow-up with urology outpatient for kidney stones Hypertension controlled unknown baseline As needed antihypertensives BP 171 / 99; Pulse 81; Resp 18; Temp 98.8; Pulse Ox 100% Acute on chronic kidney injury unknown baseline IV fluids, trend kidney function Full code DVT SCDs Diet n.p.o. after midnight Discharge Plan: Home - Code Status/Comfort Care Code Status: Full Code Critical Care: No Time Spent Managing PTS Care (In Minutes): 35
[2023-04-19] MEDS ORDERED: LIDOCAINE 2% MPF 5 ML VIAL ONE (10:58)
[2023-04-19] MEDS ORDERED: GLYCOPYRROLATE 0.2 MG/ML SYR ONE (10:58)
[2023-04-19] MEDS ORDERED: ROCURONIUM 50 MG/5 ML VIAL IV ONE (10:58)
[2023-04-19] MEDS: Ringers Lactate 1,000 ML IV ONE (10:58)
[2023-04-19] MEDS ORDERED: NEOSTIGMINE 1 MG/ML -10 ML VIAL ONE (10:58)
[2023-04-19] MEDS ORDERED: propofoL 200 MG/20 ML VIAL IV ONE ×2 (10:58→13:05)
[2023-04-19] MEDS ORDERED: MIDAZOLAM HCL 2 MG/2 ML INJ ONE ×2 (10:59→13:05)
[2023-04-19] MEDS ORDERED: FENTANYL CITR 100 MCG/2 ML ONE ×2 (10:59→13:05)
[2023-04-19] MEDS ORDERED: ONDANSETRON 4 MG/2 ML VIAL ONE ×2 (10:59→13:05)
[2023-04-19] MEDS ORDERED: KETOROLAC 30 MG/ML INJ ONE ×2 (10:59→13:43)
[2023-04-19] MEDS ORDERED: dexAMETHasone 10 MG/ML VIAL ONE ×2 (10:59→13:21)
--- NOTE | 2023-04-19 11:35 | P.HP ---
Date of Service: 04/19/23 PC: This 57-year-old male presented to the emergency room with severe right- sided abdominal pain for diagnosis and treatment. HPC: This patient has sudden onset of right upper quadrant abdominal pain, radiating into his groin. Describes it as extremely severe. Has been feeling well over the last few months. Had a fall in January where he slammed his right upper abdomen and has been having continuous abdominal pain in that area, and he attributed this as a flareup. PSHx: No prior surgeries PMHx: Hypertension Social Hx: Denies any allergies Sys R: No cough, wheeze, shortness of breath. No chest pain or palpitations. Has been in reasonably good health. Had a fall as mentioned above around January. O/E: Awake alert vital signs are stable, comfortable at the moment HEENT: Not jaundiced Chest: Chest movement equal bilaterally Abd: Abdomen is soft Murray: Intact Data: Liver enzymes are normal, ultrasound shows small amount of gallstones in the gallbladder. No evidence of obstruction. However his CT scan demonstrates a 6 mm stone in the distal ureter. Impression: This patient was presented to me as having right upper quadrant abdominal pain and gallstones. A consult was sought with Dr. Mcallister regarding his kidney stone. On review of the patient's case physical exam and history this patient has been having renal colic. I had scheduled him for a cholecystectomy with a cholangiogram, on arriving to meet the patient in the preoperative area, a conversation with Dr. Mcallister clarified that the etiology of his pain is most likely coming from his kidney and the stone. While he does have cholelithiasis, the priority at the moment is his kidney stone. Plan: After discussion with Dr. Mcallister, he is going to reevaluate the patient. The patient has been n.p.o., and it is possible that he may be a candidate for urological intervention today.
[2023-04-19] MEDS ORDERED: LIDOCAINE 1% MPF 5 ML VIAL ONE (13:05)
--- NOTE | 2023-04-19 13:30 | P.CNS ---
Date of Consult: 04/19/23 Reason for Consult: Right hydronephrosis Chief Complaint: Cholecystitis History of Present Illness: 57-year-old gentleman with hypertension presents with a 1 to 2-day history of right upper and right lower quadrant pain radiating into his groin associated with some fever and chills as well as nausea and vomiting. He says that about a month ago, he had another kidney stone, but he never sought past. The pain eventually resolved. He presented to the emergency department where they were suspicious that he might have acute cholecystitis, and he was originally planned for possible cholecystectomy with intraoperative cholangiogram. The presence of a distal ureteral calculus was also identified, and ultimately, since it was more likely his pain was due to the ureteral calculus than the gallbladder, the patient was counseled on the potential need for surgical therapy because of acute kidney injury observed. Past medical history: As above Past surgical history: No known drug allergies No history of smoking or recreational drug use Examination: Well-appearing, well-developed, well-nourished, no acute distress Alert, awake, oriented x 3 No dyspnea or sign of respiratory distress No cervical/supraclavicular adenopathy or thyromegaly Abdomen soft, nontender, nondistended Ambulatory with ease with no limitation 04/18/2023 WBC 11.6, hemoglobin 12.2, platelets 376, creatinine 1.36, INR 1.15, UA 3+ heme 04/19/2023 WBC 11.4, creatinine 1.60 Assessment and recommendation: 57-year-old gentleman with hypertension and BPH on doxazosin, recurrent stone former, with mid distal right 6 mm ureteral obstructing calculus with ROSE. -I counseled the patient that given the rise in his kidney function despite admission and IV fluids would suggest the development of acute kidney injury. I reviewed the images of the CT scan in detail, and there was perinephric stranding and mild to moderate hydroureteronephrosis down to the level of the obstructing calculus. -I further counseled the patient on the recommendation for surgical intervention. I explained that we would place a ureteral stent which would simply relieve the obstruction but had the potential for stent discomfort. We discussed the details of stenting comfort in detail. -Risk of the procedure were discussed to include bleeding, infection, urethral stricture disease, and failure to achieve the desired result requiring need for right percutaneous nephrostomy tube placement. -Consent was obtained Allergies No Known Allergies Allergy (Unverified 03/16/17 11:50) Home medications list reviewed: Yes Home Medications: Carvedilol [Coreg] 25 mg PO DAILY 04/18/23 Doxazosin [Cardura*] 2 mg PO DAILY 04/18/23 Valsartan 320 mg PO DAILY 04/18/23 - Past Medical/Surgical History -: Hypertension -: Insomnia - Social History Alcohol use: No CD- Drugs: No Caffeine use: Yes Place of Residence: Home Physical Examination Temp Pulse Resp BP Pulse Ox 98.1 F 89 18 155/91 H 95 04/19/23 08:00 04/19/23 08:00 04/19/23 08:00 04/19/23 08:00 04/19/23 08:00 General: Alert, In no apparent distress, Oriented x3 HEENT: Atraumatic, Normocephalic, PERRLA, Mucous membr. moist/pink Neck: Supple Respiratory: Normal air movement Gastrointestinal: Soft and benign, No rebound, No guarding Musculoskeletal: No clubbing, No swelling, No contractures, No erythema, No tenderness Neurological: Normal gait, Normal speech Laboratory Data (last 24 hrs) 04/18/23 04/18/23 14:10 14:10 WBC 11.60 H Hgb 12.2 L Hct 36.7 L Plt Count 376 Sodium 138 Potassium 3.8 BUN 12 Creatinine 1.36 H Glucose 116 H Total Bilirubin 0.4 AST 15 ALT 28 Alkaline Phosphatase 70 Lipase 25 - Problems (1) Ureterolithiasis Current Visit: Yes Status: Acute (2) ROSE (acute kidney injury) Current Visit: Yes Status: Acute (3) Hydronephrosis, right Current Visit: Yes Status: Acute (4) Right flank pain Current Visit: Yes Status: Acute Critical Care: No Time Spent Managing Pts care (In Minutes): 30
[2023-04-19] MEDS ORDERED: EPHEDRINE SULF 50 MG/ML VIAL ONE (13:38)
--- NOTE | 2023-04-19 14:17 | RAD REPORT ---
EXAM DESCRIPTION: RAD - Urethrocystogrphy Retrograde - 04/19/2023 2:01 pm CLINICAL HISTORY: ICD N 20.0 FINDINGS: 10 fluoroscopic spot images obtained. Fluoroscopy time.17 minutes right ureter was cannulated and contrast administered. Subsequently an ureteral stent was placed. Exa mination was performed by Dr Mcallister
--- NOTE | 2023-04-19 14:29 | P.OP ---
Date of Service: 04/19/23 Preoperative diagnoses: Right hydronephrosis Right mid distal ureterolithiasis Acute kidney injury Recurrent stone former Postoperative diagnoses: Right hydronephrosis Right mid distal ureterolithiasis Acute kidney injury Bulbar urethral stricture Recurrent stone former Principal procedures: Cystoscopy Sequential urethral dilation over a wire Right retrograde pyelography Right ureteral stent placement Complex 20 [place] urethral Mead catheter placement Indication for procedure: 57-year-old gentleman with hypertension and BPH on doxazosin, recurrent stone former, with mid distal right 6 mm ureteral obstructing calculus with ROSE. Procedure note: The patient was consented in the preoperative holding area before being transfer red to the operative suite where general anesthesia was induced. He was being given Zosyn on the floor for IV antimicrobial therapy given the suspicion for cholecystitis. Pneumoboots were provided for DVT prophylaxis. He was placed in the lithotomy position, padded and secured to the table appropriately. His genitalia was prepped with Hibiclens and he was draped in standard fashion. The case was begun using a 22 [place] rigid cystoscope to traverse the urethra until a pinpoint urethral stricture was encountered in the bulbar urethra. As a result, I utilized a Super Stiff wire passed via a 5 [place] ureteral access catheter into his bladder. I removed the scope leaving the wire in place and sequentially dilated his urethra from 16 [place] to 20 [place] using the S curved urethral dilators. I was then able to pass the 22 [place] cystoscope via his urethra all the way into his bladder with relative ease at this point. I decompressed his bladder of fluid and urine and surveyed in its entirety. There were no papillary mucosal lesions, foreign bodies or stones noted throughout. The ureteral orifices were orthotopic in location. I cannulated the tip of the right ureteral orifice, which was slightly stenotic, using the tip of the sensor wire and a 5 [place] ureteral access catheter. I then performed a retrograde pyelography study. Right retrograde pyelogram: Using a 70: 30 mixture of Omnipaque and saline, contrast was injected via the lumen of the 5 [place] ureteral access catheter and did propagate up the distal into the mid and proximal ureter before entering the renal pelvis and upper pole calyx which was present with mild to moderate caliectasis. The obstruction was now present in the distal ureter a few centimeters distal to the ureterovesical junction. As a result, I utilized a sensor wire passed via the 5 [place] ureteral access catheter, and I was able to successfully pass the wire all the way up the ureter and into the collecting system where it coiled in the upper pole calyx. Over the wire, I then passed a 6 [place] by 28 cm double-J ureteral stent, which then coiled within the upper pole calyx, ultimately transitioned into the renal pelvis, and cystoscopically a coil was formed in his bladder. I then removed the pusher and replaced the sensor wire into his bladder. Over the sensor wire, I removed the scope leaving the wire in place. I then passed a 20 [place] tip catheter over the wire beyond the strictured obstruction in the bulbomembranous urethra, and into his bladder successfully. I placed 15 cc of sterile water in the balloon, and the catheter was connected to a leg bag. He was then taken out of the lithotomy position, awakened from general anesthesia, transferred to a stretcher, and then transferred to the recovery room in good condition. Complications: None Discharge disposition: I would like him to keep the urethral Mead catheter for at least the next 3 days preferably, till Tuesday, at which point the catheter ma y be removed and he may be given a voiding trial. If he is still admitted at that time, this can be done as an inpatient, but if he has been discharged, this can be arranged to be performed in the urology clinic. He will require subsequent definitive management of the obstructing 6 mm ureteral calculus via ureteroscopy with laser lithotripsy and stent exchange in the coming weeks. As a recurrent stone former, he will require subsequent definitive metabolic evaluation.
[2023-04-19] MEDS: OXYBUTYNIN ER 5 MG TAB PO ONE (14:40)
[2023-04-19 15:07] VITALS: O2SAT 99
[2023-04-19] MEDS ORDERED: HYDROMORPHONE HCL 0.5 MG/0.5 ML INJ IV PRN (15:15)
[2023-04-19] MEDS: ACETAMINOPHEN 325 MG TABLET PO PRN (16:51)
[2023-04-19] MEDS: HYDROCODONE/APAP 5/325 MG TAB PO PRN (19:57)
[2023-04-19] MEDS: ZOLPIDEM TARTRATE 10 MG TABLET PO PRN (19:58)
[2023-04-19] MEDS: DOXAZOSIN 2 MG TAB PO SCH (21:00)
--- NOTE | 2023-04-20 07:09 | P.PN ---
Subjective Date of Service: 04/20/23 Chief Complaint: Cholecystitis Pain control with as needed analgesics, n.p.o. for cholecystectomy, urology consulted for right renal stone Abdominal pain suspected from renal calculi, renal stent placed by Dr. Mcallister - Physical Exam General: Alert, In no apparent distress, Oriented x3, Obese HEENT: Atraumatic, Normocephalic Neck: Supple, 2+ carotid pulse no bruit Respiratory: Clear to auscultation bilaterally, Normal air movement Cardiovascular: No edema, Normal pulses, Regular rate/rhythm Capillary refill: <2 Seconds Gastrointestinal: Normal bowel sounds, Tenderness (RUQ) Musculoskeletal: No clubbing, No swelling Integumentary: No rashes, No breakdown Neurological: Normal speech, Normal strength at 5/5 x4 extr Physical Examination - Vital Signs Temperature: 97.9 F Blood Pressure: 129/65 Pulse: 82 Respirations: 20 Pulse Ox (%): 97 Assessment And Plan - Plan Assessment plan Acute cholelithiasis Abdominal pain secondary to acute-suspected from renal calculi Surgery consult, n.p.o. after midnight IV Zosyn, IV fluids, as needed antiemetics, as needed analgesics CT of the abdomen pelvis IMPRESSION: Moderate right hydroureteronephrosis. Obstructing 6 mm mid to distal right ureteric calculus. Cholelithiasis. Abdominal ultrasound IMPRESSION: Cholelithiasis, with positive sonographic Guerrero sign, concerning for acute cholecystitis. Ureteral calculus obstructive Acute pyelonephritis Moderate right hydroureteronephrosis. Obstructing 6 mm mid to distal right ureteric calculus. Cholelithiasis. Follow-up urology consult IV fluids, as needed analgesic 04/[address] Mcallister history: hypertension and BPH on doxazosin, recurrent stone former, with mid distal right 6 mm ureteral obstructing calculus with ROSE. Sequential urethral dilation over a wire Right retrograde pyelography Right ureteral stent placement Complex 20 Uzbek urethral Mead catheter placement Hematuria 3+ hematuria Follow-up with urology outpatient for kidney stones Hypertension controlled unknown baseline As needed antihypertensives BP 171 / 99; Pulse 81; Resp 18; Temp 98.8; Pulse Ox 100% Acute on chronic kidney injury unknown baseline IV fluids, trend kidney function Full code DVT SCDs Diet n.p.o. after midnight
[2023-04-20 07:21] LABS: Absolute Lymphocytes (CBC) 0.9 K/uL (0.7-4.9); Hematocrit 34.2 % (39.6-49.0); Lymphocytes % 6.8 % (15.3-44.8); MCV 85.5 fL (80-100); MPV 7.6 fL (7.6-11.3); Platelets 321 thou/uL (152-406)
[2023-04-20 07:23] LABS: ALT/SGPT 19 U/L (16-61); Albumin 2.7 g/dL (3.4-5.0); Alkaline Phosphatase 65 U/L (45-117); BUN Blood Urea Nitrogen 15 mg/dL (7-18); Bicarbonate 26 mEq/L (21-32); Bilirubin Total 0.3 mg/dL (0.2-1.0); Glomerular Filtration Rate 70 ml/min (=/>90); Glucose Level 170 mg/dL (74-106); Magnesium 2.2 mg/dL (1.6-2.4); Potassium 4.4 mEq/L (3.5-5.1); Protein, Total 6.5 g/dL (6.4-8.2); Sodium Level 138 mEq/L (136-145)
[2023-04-20 07:24] LABS: AST/SGOT < 4 U/L (15-37)
--- NOTE | 2023-04-20 07:35 | P.DS ---
Admission Date: 04/18/23 Discharge Date: 04/20/23 Disposition: ROUTINE DISCHARGE Discharge Condition: GOOD Reason for Admission: Cholecystitis Brief History of Present Illness: 57-year-old male past medical history of hypertension, hyperlipidemia, presents to the emergency room with right upper quadrant. He reports nausea, abdominal pain 6 out of 10, relieved with as needed analgesics, reports associated poor appetite. He reports abdominal pain started today. No reported fever, no reported chest pain, shortness of breath, vomiting diarrhea. Plan to admit for acute cholecystitis, right ureteral kidney stone with right hydronephrosis, surgery and urology to consult. Laboratory evaluation leukocytosis of 11.60, acute kidney injury creatinine, 1.36, UA 3+ blood, CT of the abdomen pelvis FINDINGS: Mild hydronephrosis is present secondary to a 3 millimeter distal ureteral stone. This is approximately 3 cm from the UVJ. Mild edema seen along the fatty tissues adjacent to the left ureter. A 3 millimeter lower pole calcification present on the right. No right-sided hydronephrosis. No suspicious renal masses. Isodense masses and pyelonephritis are not excluded on a stone protocol CT scan. No urinary bladder suspicious finding. No significant adrenal finding,, abdominal ultrasound IMPRESSION: Cholelithiasis, with positive sonographic Guerrero sign, concerning for acute cholecystitis. - Physical Exam General: Alert, In no apparent distress, Oriented x3, Obese HEENT: Atraumatic, Normocephalic Neck: Supple, 2+ carotid pulse no bruit Respiratory: Clear to auscultation bilaterally, Normal air movement Cardiovascular: No edema, Normal pulses, Regular rate/rhythm Capillary refill: <2 Seconds Gastrointestinal: Normal bowel sounds, Tenderness (RUQ) Musculoskeletal: No clubbing, No swelling Integumentary: No rashes, No breakdown Neurological: Normal speech, Normal strength at 5/5 x4 extr Hospital Course: 57-year-old male patient presented with abdominal pain. Was thought to have cholecystitis, Was noted to have right obstructive ureteral stone. Cholelithiasis, will need to follow-up with surgery outpatient. condition improved with ureteral stent placed by Dr. Mcallister. Mead placed, While inpatient patient was treated with IV fluids, IV antibiotics, as needed analgesics. Patient tolerating diet, stable for discharge to home with follow- up appointment with primary care physician, Dr. Mcallister urology. PROBLEM: Ureteral calculus obstructive Acute pyelonephritis Cholelithiasis Was evaluated by Dr. Mcallister for urology Status post 04/[address] Mcallister history: hypertension and BPH on doxazosin, recurrent stone former, with mid distal right 6 mm ureteral obstructing calculus with ROSE. Sequential urethral dilation over a wire, Right retrograde pyelography, Right ureteral stent placement, Complex 20 Turkmen urethral Mead catheter placement Imaging CT of the abdomen pelvis IMPRESSION: Moderate right hydroureteronephrosis. Obstructing 6 mm mid to distal right ureteric calculus. Cholelithiasis. Improved with ureteral stent placement. Abdominal ultrasound IMPRESSION: Cholelithiasis, with positive sonographic Guerrero sign, concerning for acute cholecystitis. Will need to follow-up outpatient with surgery for cholelithiasis Follow-up with Dr. Mcallister urology clinic. Discharge home with Mead catheter, and leg bag, Continue home medicines as previously prescribed New prescription hydrocodone 1 every 6 hours as needed for pain. GOAL: Clear understanding of disease process INSTRUCTIONS: Physician Discharge Instructions: -Follow-up with PCP in 1 to 2 weeks -Please call Dr. Segovia at [phone] if any questions regarding hospital stay -Please call nursing station at [phone] if any nursing or medication questions -Return to the emergency room if symptoms worsen Diet: ADA, low sodium Activity: Fall precautions Vital Signs/Physical Exam: Temp Pulse Resp BP Pulse Ox 97.9 F 82 20 129/65 97 04/20/23 07:08 04/20/23 07:08 04/20/23 07:08 04/20/23 07:08 04/20/23 07:08 Laboratory Data at Discharge: WBC 11.40 thou/uL (4.3-10.9) H 04/19/23 03:35 Hgb 11.0 g/dL (13.6-17.9) L D 04/19/23 03:35 Hct 33.9 % (39.6-49.0) L 04/19/23 03:35 Plt Count 300 thou/uL (152-406) 04/19/23 03:35 PT 12.6 SECONDS (9.5-12.5) H 04/19/23 03:35 INR 1.15 04/19/23 03:35 Sodium 138 mEq/L (136-145) 04/20/23 06:45 Potassium 4.4 mEq/L (3.5-5.1) 04/20/23 06:45 BUN 15 mg/dL (7-18) 04/20/23 06:45 Creatinine 1.21 mg/dL (0.70-1.30) 04/20/23 06:45 Glucose 170 mg/dL (74-106) H 04/20/23 06:45 Magnesium 2.2 mg/dL (1.6-2.4) 04/20/23 06:45 Total Bilirubin 0.3 mg/dL (0.2-1.0) 04/20/23 06:45 AST < 4 U/L (15-37) L 04/20/23 06:45 ALT 19 U/L (16-61) 04/20/23 06:45 Alkaline Phosphatase 65 U/L (45-117) 04/20/23 06:45 Lipase 25 U/L (13-75) 04/18/23 14:10 Home Medications: Carvedilol [Coreg] 25 mg PO BID 04/18/23 Doxazosin [Cardura*] 2 mg PO BEDTIME 04/18/23 Valsartan 320 mg PO DAILY 04/18/23 Hydrocodone 5/APAP 325 [[place] 5/325*] 1 tab PO Q6HP PRN #30 tab 04/20/23 New Medications: Hydrocodone 5/APAP 325 [[place] 5/325*] 1 tab PO Q6HP PRN #30 tab PRN Reason: Pain Scale 5-7 (Moderate) Physician Discharge Instructions: -DC IV and DC home -Follow-up with PCP in 1 to 2 weeks -Follow-up with Surgery and Urology in 1 to 2 weeks -Please call Dr. Segovia at [phone] if any questions regarding hospital stay -Please call nursing station at [phone] if any nursing or medication questions -Return to the emergency room if symptoms worsen Diet:Low sodium Activity: PHYSICIAN'S DISCHARGE INSTRUCTIONS You have a urethral Mead catheter in place. This was placed after required dilation of an incidentally discovered membranobulbar urethral stricture that was pinpoint, and likely contributing to some of your bothersome urinary symptoms. I would like for you to keep this catheter for at least 3 days to allow the stricture to adequately dilate and hopefully remain open/patent. If you have been discharged prior to Tuesday, contact my office, and they will arrange to remove the catheter accordingly on Tuesday. It is common to see some blood in the urine following your procedure. It will be light pink/cranberry colored initially, and then it will become dark or tea colored, when the blood oxidized is in the urine, before it finally clears up. It is only a concern if you note bright red and thick/nontranslucent (not see- through) blood in the urine that appears like tomato juice. You may purchase [id number] Azo (Pyridium) if you have burning with urinat ion. Please note, it will turn your urine bright orange. Please contact my office to arrange follow-up within the next several weeks to discuss next steps with regard to the management of your obstructing ureteral calculus and your recurrent stone forming history. All the best Carlos A Mcallister MD, Ph.D. [employer] [facility] [employer] [facility] [phone] Diet: Low sodium Followup: Dharmesh Ricketts MD [Primary Care Provider] - Carlos A Mcallister [ACTIVE - CAN ADMIT] - Time spent managing pt's care (in minutes): 55
[2023-04-20] MEDS: carvediloL 25 MG TAB PO SCH (08:00)
[2023-04-20] MEDS: VALSARTAN 160 MG TAB PO SCH (08:02)
[2023-04-20 08:11] LABS: Blood Morphology Comment NOT SEEN (NOT SEEN); Platelet Estimate ADEQ; White Blood Cell Scan OK (OK)
[2023-04-20] MEDS ORDERED: HOME MED 1 EA UNK (Valsartan [Valsartan] 320 MG Tablet) PO SCH (09:00)
[2023-04-20] MEDS ORDERED: DOXAZOSIN 2 MG TAB PO SCH (09:00)
[2023-04-20 10:36] VITALS: BP 148/87; TEMP 97.3
== END 2023-04-20 10:44 | disposition home or self-care (01) ==
LOC: ER 13:50 → ERHOLD 17:12 → 2ND 20:37
PROVIDERS: ADMIT Hospitalist; ATTEND Hospitalist
PROC: 0T768DZ Dilation of Right Ureter with Intraluminal Device, Via Natural or Artificial Opening Endoscopic (ICD-10-PCS; principal; 2023-04-19 13:45)
DX: N20.1 Calculus of ureter (principal); N17.9 Acute kidney failure, unspecified; N13.30 Unspecified hydronephrosis; N10 Acute pyelonephritis; I10 Essential (primary) hypertension; E78.5 Hyperlipidemia, unspecified; R10.9 Unspecified abdominal pain; R31.9 Hematuria, unspecified; N40.0 Benign prostatic hyperplasia without lower urinary tract symptoms; N35.912 Unspecified bulbous urethral stricture, male; K81.0 Acute cholecystitis
CPT/HCPCS: 96365; 96361; 85025 ×3; 81001; 80048; 36415 ×2; 83735 ×2; 85610; 83690; 80053 ×2; 74177; 74450; 51610; 76705; 96375; 99285; 96366; 52281; 52332; Q9967; J2704; J2710; J2001; J2543 ×6; J2250; J3010; J1100; J1170 ×4; J2405 ×2; J7120; J7030 ×3; G0378